=== PATIENT | female | born 1950 | race Caucasian/White ===

== ENCOUNTER → 2018-01-06 | Outpatient (CLI) | payer MEDICARE ==
--- NOTE | 2018-01-06 18:14 | RAD ---
EXAM DESCRIPTION: Ankle,Left 3 Views CLINICAL HISTORY: FRACTURE OF ANKLE COMPARISON: None. TECHNIQUE: 3 views left FINDINGS: A transverse fracture of the medial malleolus is observed. A spiraling fracture of the distal fibula is noted. The ankle mortise is intact. A posterior malleolar fracture is also noted marked soft tissue swelling is observed laterally. IMPRESSION: A trimalleolar fracture of the left ankle is demonstrated Electronically signed by: Luis Mckeon MD 01/06/2018 6:13 PM CDT
== END | disposition home or self-care (01) ==
LOC: RAD 14:29
PROVIDERS: ATTEND Nurse Practitioner Family
DX: S82.92XA Unspecified fracture of left lower leg, initial encounter for closed fracture (principal)

== ENCOUNTER → 2018-01-15 | Outpatient (CLI) | payer MEDICARE ==
--- NOTE | 2018-01-15 10:28 | RAD ---
EXAM DESCRIPTION: Ankle,Left 3 Views CLINICAL HISTORY: 67 years, Female, UNSP FRACTURE OF LOWER LEG COMPARISON: Previous study January 06, 2018 TECHNIQUE: AP/lateral/oblique of the Right or left ankle FINDINGS: Trimalleolar fracture is again noted. Talar dome is tilted medially. Slightly widened ankle joint space is seen medially which appears slightly increased compared to previous study. On the lateral view, the distal tibial plafond is slightly more anterior relative to the dome of the talus. No change in alignment of the lateral malleolar fracture of the distal left fibula. IMPRESSION: Mild change of ankle alignment on casted views of left ankle trimalleolar fracture. Electronically signed by: Oscar Valadez MD 01/15/2018 10:26 AM CDT
== END ==
LOC: RAD 08:50
PROVIDERS: ATTEND Orthopaedic Surgery
DX: S82.92XD Unspecified fracture of left lower leg, subsequent encounter for closed fracture with routine healing (principal)

== ENCOUNTER 2018-01-17 05:54 | Day surgery (SDC) | payer MEDICARE ==
--- NOTE | 2018-01-15 11:21 | RAD ---
EXAM DESCRIPTION: Chest,2 Views CLINICAL HISTORY: 67 years Female, pre op COMPARISON: None. IMPRESSION: Heart size and pulmonary vascularity are within normal limits. The lungs are hyperexpanded. There is no focal airspace consolidation, pleural effusion, or pneumothorax. No acute osseous abnormality. Electronically signed by: Chris Salmon MD 01/15/2018 11:20 AM CDT
[2018-01-17] MEDS ORDERED: LACTATED RINGERS 1,000 ML ONE (06:02)
[2018-01-17] MEDS ORDERED: SODIUM CHL 0.9% 50ML MIN-BAG+ 50 ML IVPB ONE (06:02)
[2018-01-17] MEDS ORDERED: ceFAZolin SODIUM 1 GM VIAL ONE ×2 (06:02→06:47)
[2018-01-17] MEDS ORDERED: BUPIVACAINE 0.25% W/EPI 50 ML VIAL INJ ONE (06:47)
[2018-01-17] MEDS ORDERED: VANCOMYCIN HCL INJ 1,000 MG VIAL IVPB ONE (06:47)
[2018-01-17] MEDS ORDERED: LIDOCAINE 1% W/ EPINEPHRINE 20 ML VIAL INJ ONE (06:47)
[2018-01-17] MEDS ORDERED: MIDAZOLAM INJ 2 MG/2 ML VIAL ONE (06:49)
[2018-01-17] MEDS ORDERED: fentaNYL CITRATE INJ 50 MCG/ML AMP ONE (06:49)
[2018-01-17] MEDS ORDERED: PROPOFOL 200 MG/20 ML VIAL IV ONE (07:00)
[2018-01-17] MEDS ORDERED: DEXAMETHASONE INJ 10 MG/ML VIAL ONE (07:00)
[2018-01-17] MEDS ORDERED: METOCLOPRAMIDE HCL INJ 10 MG/2 ML VIAL ONE (07:00)
[2018-01-17] MEDS ORDERED: LIDOCAINE 1% 10 ML VIAL INJ ONE (07:00)
[2018-01-17] MEDS ORDERED: raNITIdine HCL INJ 25 MG/ML VIAL ONE (07:00)
[2018-01-17] MEDS ORDERED: ACETAMINOPHEN IV 1000MG 100 ML ONE (07:39)
[2018-01-17] MEDS ORDERED: HYDROmorphone HCL INJ 2 MG/ML VIAL ONE ×2 (07:39→10:16)
[2018-01-17 11:05] VITALS: O2SAT 95
--- NOTE | 2018-01-17 12:22 | RAD ---
EXAM DESCRIPTION: Ankle,Left 3 Views CLINICAL HISTORY: 67 years, Female, post op COMPARISON: None. TECHNIQUE: AP/lateral/oblique of the left ankle FINDINGS: Plate and screws are seen stabilizing fractures of medial and lateral malleoli. Osseous irregularities overlying the medial malleolus are noted suggesting callus formation around bone fragments. Minimal air in the soft tissues around the medial malleolus suggest recent surgery. Anatomic alignment is noted on two views. Intact bones of the hindfoot and midfoot. Impression: Internal fixation of medial malleolar and lateral malleolar fractures. Electronically signed by: Oscar Valadez MD 01/17/2018 12:20 PM CDT
[2018-01-17 12:45] VITALS: BP 149/80; TEMP 98.8
--- NOTE | 2018-01-18 14:43 | OP ---
DATE OF PROCEDURE: 01/17/18 PREOPERATIVE DIAGNOSIS: 1. Trimalleolar ankle fracture. POSTOPERATIVE DIAGNOSIS: 1. Trimalleolar ankle fracture. PROCEDURE: 1. Open reduction and internal fixation of the ankle. SURGEON: Sebastián Cameron M.D. COST CONTROLLER: oLw [place] CST, -C. ANESTHESIA: General anesthesia. COMPLICATIONS: None. FINDINGS: A comminuted fracture involving the lateral and medial malleoli. The posterior malleolus was minimal. INDICATION FOR PROCEDURE: Ms. Ayoub has a history of a twisting injury and subsequent trimalleolar ankle fracture. It was initially nondisplaced, however it is displaced even in a well-fitted cast. Because of that, we talked about options inclusive of the risks, benefits, and alternatives to operative therapy. Informed consent was obtained for the above procedure. DESCRIPTION OF PROCEDURE: The patient was brought to the Operating Room and placed in the supine position. General anesthesia was induced and the patient' s leg was sterilely prepped and draped. Following prepping and draping, an incision was made on the lateral border of the ankle directly overlying the fibula. Dissection was carried down to the periosteum which was sharply incised and elevated. There was obvious comminuted fracture involving the fibula with displacement. The fracture hematoma was cleared and provisional reduction was achieved. There was a single lag screw from anterior to posterior placed and then a plate was applied. The reduction was checked. The screw lengths were confirmed and the stability of the ankle was noted to have no widening of the mortise with stress views. Attention was focused on the medial malleolus. An incision was made directly over the medial malleolus. Following that incision, dissection was carried down to the medial malleolus. Unfortunately there was a significant amount of comminution. That said, I was able to reduce the largest fragment and place one single partially threaded cancellous screw. That was enough to hold the reduction, however I did place some bone graft into the region of comminution. The wound was irrigated and the wound was closed. Sterile dressings were placed. The patient was awakened from anesthesia and then taken to recovery. A boot was placed. POSTOPERATIVE: She is going to be nonweightbearing until we see adequate callous formation. #[id number] [facility]
== END 2018-01-17 12:20 | disposition home or self-care (01) ==
LOC: AMB 05:54
PROVIDERS: ATTEND Orthopaedic Surgery
DX: S82.852A Displaced trimalleolar fracture of left lower leg, initial encounter for closed fracture (principal); K21.9 Gastro-esophageal reflux disease without esophagitis
CPT/HCPCS: 01480; 27822; 36415; 71046; 73610; 76000; 80048; 81001; 85025; 87070; 93005; C1713; C1769; J0690; J1100; J1170; J2250; J2765; J2780; J3010; J3370; J3490; J7050; J7120

== ENCOUNTER → 2018-01-27 | Outpatient (CLI) | payer MEDICARE ==
--- NOTE | 2018-01-27 09:25 | RAD ---
EXAM DESCRIPTION: Ankle,Left 3 Views CLINICAL HISTORY: 67 years, Female, UNSPECIFIED FRACTURE OF LEFT LOWER LEG COMPARISON: Previous study January 17, 2018 TECHNIQUE: AP/lateral/oblique of the Right or left ankle FINDINGS: Orthopedic screw is seen through the medial malleolar fracture with ossific densities which may be soft tissue calcification or tiny bone fragments. There is evidence of callus formation since previous study. Plate and screws stabilize the distal left fibular fracture. Normal alignment at the ankle joint. Talus and calcaneus appear intact. There is minimal soft tissue swelling laterally and medially. Intact proximal metatarsals. Intact dome of the talus. Lateral view shows no evidence of fracture of the body of the talus or calcaneus. Minimal calcaneal spurring is seen. IMPRESSION: Healing fractures with orthopedic hardware in place. Electronically signed by: Oscar Valadez MD 01/27/2018 9:23 AM CDT
== END ==
LOC: RAD 08:09
PROVIDERS: ATTEND Orthopaedic Surgery
DX: S82.92XD Unspecified fracture of left lower leg, subsequent encounter for closed fracture with routine healing (principal)

== ENCOUNTER → 2018-02-27 | Outpatient (CLI) | payer MEDICARE ==
--- NOTE | 2018-02-27 16:08 | RAD ---
EXAM DESCRIPTION: Ankle,Left 3 Views CLINICAL HISTORY: 67 years Female, CLOSED FX OF ANKLE COMPARISON: Radiographs of the left ankle dated 01/27/2018. TECHNIQUE: AP, oblique and lateral radiographs. FINDINGS: The visualized bones appear osteopenic most likely secondary to disuse. . Stable plate and Screw fixation of the distal fibula and medial malleolus The ankle mortise is intact. There is mild diffuse soft tissue swelling. IMPRESSION: Intact plate and screw fixation of the distal fibula and medial malleolus. Electronically signed by: Zenia Toussaint MD 02/27/2018 4:07 PM CDT
== END ==
LOC: RAD 08:27
PROVIDERS: ATTEND Orthopaedic Surgery
DX: S82.92XD Unspecified fracture of left lower leg, subsequent encounter for closed fracture with routine healing (principal)

== ENCOUNTER → 2018-03-14 | Outpatient (CLI) | payer MEDICARE ==
--- NOTE | 2018-03-14 10:53 | RAD ---
EXAM DESCRIPTION: Ankle,Left 3 Views CLINICAL HISTORY: 67 years Female, FRACTURE OF LEFT LOWER LEG COMPARISON: Radiographs of the left ankle dated 02/27/2018. TECHNIQUE: AP, oblique and lateral radiographs. FINDINGS: The visualized bones appear osteopenic. Plate and screw fixation of the distal fibula and medial malleolus are identified. Heterotopic new bone formation is noted adjacent to the medial malleolus with persistent visualization of the fracture line. The soft tissues appear grossly unremarkable. IMPRESSION: Osteopenia. Fracture line through the medial malleolus are visualized. Intact plate and screw fixation of the distal fibula. Electronically signed by: Zenia Toussaint MD 03/14/2018 10:52 AM CDT
== END ==
LOC: RAD 08:22
PROVIDERS: ATTEND Orthopaedic Surgery
DX: S82.92XD Unspecified fracture of left lower leg, subsequent encounter for closed fracture with routine healing (principal)

== ENCOUNTER → 2018-03-28 | Outpatient (CLI) | payer MEDICARE ==
--- NOTE | 2018-03-28 09:01 | RAD ---
EXAM DESCRIPTION: Ankle,Left 3 Views CLINICAL HISTORY: 67 years Female, UNSPECIFIED FRACTURE OF LEFT LOWER LEG COMPARISON: Radiographs of the left ankle dated 03/14/2018. TECHNIQUE: AP, oblique and lateral radiographs. FINDINGS: The visualized bones appear diffusely osteopenic. Plate and screw fixation of the medial malleolus and distal fibula are again identified. There is some interval healing. The ankle mortise is intact. The soft tissues appear grossly unremarkable. IMPRESSION: Osteopenia. Some interval healing of the fracture of the medial malleolus. Intact plate and screw fixation of the distal fibula. Electronically signed by: Zenia Toussaint MD 03/28/2018 8:59 AM CDT
== END ==
LOC: RAD 08:24
PROVIDERS: ATTEND Orthopaedic Surgery
DX: S82.92XD Unspecified fracture of left lower leg, subsequent encounter for closed fracture with routine healing (principal)